=== PATIENT | male | born 1945 | race Caucasian/White ===

== ENCOUNTER 2025-04-05 09:51 | Outpatient (REF) | payer MEDICARE, MEDICAID, SELFPAY ==
--- OUTSIDE RECORDS SUMMARY | 2025-04-05 09:56 | XMS_ITS ---
[facility] Name [facility] Organization Unknown Care Team Organization Name Specialty Phone Email Start Date End [facility] Primary Care 08/02/20242024
--- OUTSIDE RECORDS SUMMARY | 2025-04-05 09:56 | XMS_ITS | Clinical Summary ---
Author Organization [employer] Address [address] [facility] [address] [place] [address] Care Team Providers Care [employer] Dual Rate Supervisor Name Role Phone Bibi López MD Primary Care Provider [phone] Allergies Active Allergy Reactions Criticality Noted Date Comments Codeine 03/22/2025 Naproxen 03/22/2025 Medications rosuvastatin (Crestor) 10 MG tablet Take 10 mg by mouth at bedtime. 5 Active metoprolol succinate XL (Toprol-XL) 25 MG 24 hr tablet Take 25 mg by mouth Once per day. as directed 5 Active lisinopril 10 MG tablet Take 1 tablet by mouth Once per day. 5 Active carbamide peroxide (Debrox) 6.5 % otic solutionIndicat ions:Impacted cerumen of left ear Administer 3-5 drops into affected ear(s) 2 times daily for 4 days. 15 mL 5 03/26/20 25 Active Problems Problem Noted Date Diagnosed Date Primary hypertension 03/22/2025 Assessment & Plan (03/22/2025 2:49 PM EDT): Uncontrolled BP. Will send refills and followup in 2 months. Target < 140/90 mmHg Assessment: Patient reports a history of hypertension with a current blood pressure reading of 160/88. He is currently on lisinopril 10 mg daily and metoprolol succinate ER 25 mg daily for blood pressure management. The elevated systolic blood pressure indicates suboptimal control on the current medication regimen. Plan: - Provide home blood pressure monitoring device - Patient to measure and record blood pressure readings at home - Review metoprolol necessity before considering medication adjustments - If consistently elevated readings, consider adjusting antihypertensive medication - Follow up to reassess blood pressure control Congenital shortening of right lower extremity 0 03/22/2025 Assessment & Plan (03/22/2025 2:49 PM EDT): Will send heel lift to [facility]. Prostate cancer screening 03/22/2025 Avascular necrosis of bone of right hip 03/22/20 25 Mixed hyperlipidemia 03/22/2025 History of stomach cancer 03/22/2025 Encounters Date Type Department Care Team Description 04/03/2025 Telephone [facility] [address] [place] [address] Bibi López MD 03/27/2025 Telephone [facility] [address] [place] [address] Bibi López MD 03/25/2025 Orders Only [facility] [employer] [facility] Information Management [address] [place] [address] [phone] ProviderWillian MD 03/25/2025 Telephone [facility] [address] [place] [address] Bibi López MD Appointment Request 03/22/2025 1:15 PM EDT Office Visit [facility] [address] [place] [address] Bibi López MD Primary hypertension (Primary Dx); Prostate cancer screening; Congenital shortening of right lower extremity; Impacted cerumen of left ear; Avascular necrosis of bone of right hip (CMS/HCC); Mixed hyperlipidemia; History of stomach cancer 03/22/2025 Travel 03/15/2025 Patient Outreach [facility] [address] [place] [id number] Jaime Neville MD Pre-visit Planning (Pre visit planning LVM ) 02/11/[address] [phone] Jaime Neville MD from Last 3 Months Social History Tobacco Use Types Packs/Day Years Used Date Smoking Tobacco: Never Passive Smoke Exposure: Never Smokeless Tobacco: Never Tobacco Cessation:Counseling Given: Not Answered Alcohol Use Standard Drinks/Week Comments Never 0 (1 standard drink = 0.6 oz pur e alcohol) Sex and Gender Information Value Date Recorded Sex Assigned at Male 03/22/2025 1:16 PM EDT Legal Sex Male 10:28 AM EDT Gender Identity Male 03/22/2025 1:16 PM EDT Sexual Orientation Straight 03/22/2025 1: 16 PM EDT Last Filed Vital Signs Vital Sign Reading Time Taken Comments Blood Pressure 160/88 03/22/2025 2:22 PM EDT Pulse 66 03/22/2025 1:47 PM EDT Temperature 36.2 C (97.2 F) 03/22/2025 1:47 PM EDT Respiratory Rate 20 03/22/2025 1:47 PM EDT Oxygen Saturation 98% 03/22/2025 1:47 PM EDT Inhaled Oxygen Concentration - - Weight 62.2 kg (137 lb 3.2 oz) 03/22/2025 1:47 P M EDT Height 153 cm (5' 0.24 ) 03/22/2025 1:47 PM EDT Body Mass Index 26.59 03/22/2025 1:47 PM EDT Plan of Treatment Upcoming Encounters Date Type Department Care Team (Late st Contact Info) Description 05/08/2025 9:00 AM EDT Office Visit [facility] [address] [place] [address] Bibi López MD [address] [place] [address] Health Maintenance Due Date Last Done Comments Depression Screening 1945 Lipid Panel 1945 SDOH Screening 1945 Alcohol/Substance Use Screening 1958 Hepatitis C Screening 1964 RSV Patients and Patients Aged 60 years or older (1 - 1-dose 75+ series) 2021 COVID-19 Vaccine ( season) 2024 07/22/2021, 11/20/2020, 10/24/2020 Influenza Vaccine (#1) 2025 , 06/28/2023, 07/17/2021, Additional history exists Tobacco Screening 03/22/2026 03/22/2025 DTaP/Tdap/Td Vaccines (2 - Td or Tdap) 03/15/2032 03/15/2022 Pneumococcal Vaccine: 50+ Years Completed 01/17/2025 Zoster Vaccines Completed 01/17/2025, 02/20/2019 HIB Vaccines Aged Out No longer eligi ble based on patient's age to complete this topic HPV Vaccines Aged Out No longer eligi ble based on patient's age to complete this topic Hepatitis A Vaccines Aged Out No long er eligible based on patient's age to complete this topic Hepatitis B Vaccines Aged Out No long er eligible based on patient's age to complete this topic IPV Vaccines Aged Out No longer eligi ble based on patient's age to complete this topic Meningococcal B Vaccine Aged Out No l onger eligible based on patient's age to complete this topic Meningococcal Vaccine Aged Out No demetrius margaret eligible based on patient's age to complete this topic RSV under 20 months Aged Out No longe r eligible based on patient's age to complete this topic Rotavirus Vaccines Aged Out No longer eligible based on patient's age to complete this topic Insurance [employer] MEDICARE REPLACEMENT HSN FULL Care Teams Table Games Dual Rate Supervisor Relationship Specialty Start Date End Date López, Bibi, MD [address] [place] [phone] PCP - General Family Medicine 03/22/25 Ephraim Merida MD Consulting Physician Urology 08/15/19
[2025-04-05 15:49] LABS: MANUAL DIFF FLAG NO
[2025-04-05 16:13] LABS: Hematocrit 39.3 % (42.0-52.0); Hemoglobin 12.8 g/dl (14.0-18.0); Imm Gran Abs Auto 0.02 X10*3/uL (0.00-0.03); Imm Gran Pct Auto 0.3 % (0.0-0.4); Lymphocytes Absolute Auto 1.2 X10*3/uL (1.2-4.9); Mean Corpuscular HGB Conc 32.6 g/dl (31.0-36.0); Mean Corpuscular Hemoglobin 31.3 pg (27.0-33.0); Mean Corpuscular Volume 96.1 fL (80.0-98.0); NRBC Abs Auto 0.000 X10*3/uL (0.0-0.012); NRBC Pct Auto 0.0 /100WBC (0.0-0.2); Platelet Count 192 X10*3/uL (160-400); Red Blood Count 4.09 X10*6/uL (4.60-5.80); White Blood Count 6.9 X10*3/uL (4.8-10.8)
[2025-04-05 16:38] LABS: Alanine Aminotransferase 27 U/L (0-40); Albumin Level 4.1 g/dL (3.5-5.0); Alkaline Phosphatase 89 U/L (39-117); Anion Gap 12 (12-20); Aspartate Amino Transferase 32 U/L (5-37); Blood Urea Nitrogen 22 mg/dL (9-16); Calcium 9.2 mg/dL (8.4-10.2); Carbon Dioxide 26 mmol/L (22-29); Chloride 109 mmol/L (96-108); Cholesterol 209 mg/dL (<200); Estimated Glomerular Filt Rate > 60; HDL Cholesterol 43 mg/dL (>40); Potassium 4.8 mmol/L (3.3-5.1); Sodium 142 mmol/L (135-145); Total Protein 6.9 g/dL (6.5-8.0); Triglycerides 111 mg/dL (<150)
[2025-04-05 17:04] LABS: PSA,Total (Free>4and<10) 7.88 ng/mL (0.00-4.00)
[2025-04-08 12:59] LABS: Free Prostate Spec Ag 2.6 ng/mL; Percent Free Prostate Spec Ag 37 % (calc) (>25)
== END 2025-04-05 09:52 | disposition home or self-care (01) ==
LOC: CF 09:51
PROVIDERS: Visit Provider Family Medicine
DX: Z12.5 Encounter for screening for malignant neoplasm of prostate (principal); I10 Essential (primary) hypertension
CPT/HCPCS: 36415; 80053; 80061; 84153; 84154; 84443; 85025